=== PATIENT | female | born 1980 | race Caucasian/White ===

== ENCOUNTER 2018-01-22 16:30 | Outpatient (CLI) | payer OTHER ==
[2018-01-22 17:04] LABS: Hemoglobin 14.2 g/dL (12.0-16.0); Mean Corpuscular HGB CONC 33.6 g/dL (32.0-36.0); Mean Corpuscular Volume 89.2 fl (81.0-99.0); Mean Platelet Volume 7.4 fL (7.4-10.4); Platelet Count 247 thou/uL (130-400); RBC Distribution Width 11.8 % (11.5-14.5); Red Blood Cell (RBC) Count 4.74 mill/uL (4.20-5.40); White Blood Cell (WBC) Count 9.7 thou/uL (4.8-10.8)
== END 2018-01-22 16:31 | disposition home or self-care (01) ==
LOC: LABBT 16:30
PROVIDERS: ATTEND Student in an Organized Health Care Education/Training Program
DX: Z01.812 Encounter for preprocedural laboratory examination (principal); D21.9 Benign neoplasm of connective and other soft tissue, unspecified; R10.2 Pelvic and perineal pain
CPT/HCPCS: 85027; 86850; 86900; 86901

== ENCOUNTER 2018-01-22 16:31 | Observation (INO) | payer OTHER ==
[2018-01-22 17:00] VITALS: BMI 29.4
--- NOTE | 2018-01-24 21:05 | HP ---
DATE OF ADMISSION: 01/25/2018 CHIEF COMPLAINT: Uterine fibroids and pelvic pain. HISTORY OF PRESENT ILLNESS: This is a 37-year-old G0 with complaints of daily pelvic pain with episo dic severe pressure type pain occurring every couple of days. The patient was found to have a uterin e fibroid when she initially came to see me in 08/2017 that was 7 x 6 x 7. She had an MRI secondary to some increased vascularity. The fibroid on MRI was felt to be anterior. It showed varicosities i n the parametrium and pelvic congestion. This mass was felt to be a large submucosal fibroid. No ly mph nodes were evident and possible pelvic congestion. She then was placed on 6 months of Depo Lupro n, which did shrink the fibroid and slightly improved her pelvic pain and she was bridged on to silvestre nuous oral contraceptives. She had recurrence of her pain after being bridged on to continuous OCPs after 6 months and repeat ultrasound showed that the fibroid had grown back to its original size and this was in 12/2016. Most recent ultrasound showed the fibroid measuring 7.25 x 5.85 x 7.4. PAST MEDICAL HISTORY: Denies. PAST SURGICAL HISTORY: Laparotomy for ovarian cyst and endometriosis in 2002. OBSTETRIC HISTORY: G0. GYNECOLOGIC HISTORY: No abnormal Paps, no STDs. SOCIAL HISTORY: Negative x3. ALLERGIES: PENICILLIN. FAMILY HISTORY: Hyperlipidemia, diabetes, colon cancer in maternal grandmother. REVIEW OF SYSTEMS: Negative except as noted in HPI. PHYSICAL EXAMINATION: VITAL SIGNS: Blood pressure 110/76, weight 166 pounds, BMI is 30.4, pulse is 90, respirations 18. GENERAL: No acute distress. CARDIAC: Regular rate and rhythm. LUNGS: Clear to auscultation bilaterally. ABDOMEN: Soft, nontender, nondistended. EXTREMITIES: No edema, cyanosis or clubbing. PELVIC: Deferred to the OR. ASSESSMENT AND PLAN: This is a 37-year-old G0 with symptomatic uterine fibroid with pressure symptom s and a history of likely endometriosis. The patient desires management with a conservative surgery including myomectomy and excision or fulguration of endometriotic implants if present based on lizy hayward's report of 2002 laparotomy. I have not been able to obtain his OP note and I have counseled the p atient on risk of surgery to include bleeding, transfusion, infection, damage to surrounding structur es including bowel, bladder, ureter, blood vessels and nerves, also, regrowth of fibroids following m yomectomy or if excessive bleeding present and lifesaving hysterectomy would also be acceptable. The patient understands and wishes to proceed. All her questions were answered. She will follow up wit h me in 2 weeks postoperative time.
[2018-01-25] MEDS ORDERED: Bupivacaine HCl 0.5%/Epinephrine 1:200,000/PF 30 ml Vial ONE (06:38)
[2018-01-25] MEDS ORDERED: Levofloxacin 500 mg/D5W 100 ml Premix Bag ONE (06:54)
[2018-01-25] MEDS ORDERED: Clindamycin/D5W 900 mg/50 ml Premix Bag ONE (06:54)
[2018-01-25] MEDS ORDERED: Promethazine HCl 25 MG/ML VIAL ONE (07:04)
[2018-01-25] MEDS ORDERED: Midazolam HCl 2 mg/2 ml Vial ONE ×2 (07:04→07:31)
[2018-01-25] MEDS ORDERED: Fentanyl 250 MCG/5 ML VIAL ONE ×2 (07:04→11:48)
[2018-01-25] MEDS ORDERED: Sterile Water 10 ML ONE (08:13)
[2018-01-25] MEDS ORDERED: Ondansetron HCl/PF 4 MG/2 ML Vial IVP PRN ×2 (11:30→11:35)
[2018-01-25] MEDS ORDERED: Promethazine HCl 25 MG/ML VIAL SLOW IVP PRN (11:30)
[2018-01-25] MEDS ORDERED: Morphine Sulfate 2 MG/ML SYRINGE SLOW IVP PRN (11:30)
[2018-01-25] MEDS ORDERED: HYDROcodone/Acetaminophen 5/325 mg Tablet PO PRN (11:35)
[2018-01-25] MEDS ORDERED: Simethicone Chewable 80 MG TAB PO PRN (11:35)
[2018-01-25] MEDS ORDERED: diphenhydrAMINE 25 MG CAP PO PRN (11:35)
[2018-01-25] MEDS ORDERED: Acetaminophen 325 MG TAB PO PRN (11:35)
[2018-01-25] MEDS ORDERED: Bisacodyl 10 MG SUPP PR PRN (11:35)
[2018-01-25] MEDS ORDERED: Promethazine HCl 25 MG/ML VIAL IM PRN (11:35)
[2018-01-25] MEDS ORDERED: Zolpidem Tartrate 5 MG TAB PO PRN (11:35)
[2018-01-25] MEDS: Morphine 5 MG/ML SYRINGE SLOW IVP PRN ×2 (12:45→16:48)
--- NOTE | 2018-01-25 13:22 | OP ---
DATE OF OPERATION: 01/25/2018 PREOPERATIVE DIAGNOSES: 1. Uterine fibroid. 2. Endometriosis. 3. Pelvic pain. POSTOPERATIVE DIAGNOSES: 1. Uterine fibroid. 2. Endometriosis. 3. Pelvic pain. PROCEDURE: Robotic assisted myomectomy, lysis of adhesions. ESTIMATED BLOOD LOSS: 150 mL. URINE OUTPUT: 300 mL of clear urine. INTRAVENOUS FLUIDS: Two liters crystalloid. COMPLICATIONS: None. PATHOLOGY: Uterine fibroid. DRAINS: Asher catheter. ANESTHESIA: General endotracheal. ATTENDING SURGEON: Rosa Dickerson MD [employer] SURGEON: Meg Mehta D.O. FINDINGS: On exam under anesthesia, a mobile 14-week size uterus with a 4 cm an anterior fibroid present. On intraabdominal survey, the bilateral adnexa were adherent to the pelvic sidewall and the uterosacral ligaments bilaterally and the fibroid was anterior. There were no other discrete fibroid present and no other endometriotic implants visible. A small eli less than 1 cm in the bag was noted near the top of the bag that occurred during morcellation. Since the hole was near the rim of the bag it was felt to likely be due to traction on bag and no evidence of underlying injury to abdominal structures. Possible minimal to no spillage of cellular material through this hole. Abdomen was irrigated following morcellation. OPERATIVE TECHNIQUE: The patient was taken to the operating room where general anesthesia was obtained without difficulty. The patient was prepped and draped in a sterile fashion in the dorsal lithotomy position. A Asher catheter was placed in the bladder. A speculum was placed in the vagina. The anterior lip of cervix was grasped with a single tooth tenaculum. The uterus then sounded to 12 cm and the cervix was dilated with Ry dilators. Progressively, the diagnostic VCare was then inserted at the sounded depth and the tip balloon was inflated. The speculum and tenaculum were removed out of the vagina and legs were placed in low lithotomy. Attention was turned to the abdomen. An 8 mm skin incision was made in the umbilicus after infiltrating with 0.5% Marcaine with epinephrine. The Veress needle was passed into the abdomen noting an opening pressure of 5 mmHg. Pneumoperitoneum was obtained without difficulty. The Veress needle was then removed. The 8 mm trocar was passed into the abdomen and confirmed placement with robotic camera and steep Trendelenburg was obtained. The lower quadrant 8 mm robotic trocars were then placed after infiltrating with anesthetic under direct visualization. The umbilical incision was then extended to accommodate a 2.5 cm fascial incision with a knife. The 8 mm trocar was removed. The mini GelPOINT Elena was then placed into the abdomen and the 8 mm scope port and the 11 mm printer assistant port were placed through the mini GelPOINT and this was affixed to the Elena and pneumoperitoneum was reestablished. The remainder of the omental adhesions to the anterior abdominal wall were then taken down with the use of the monopolar scissors on coag ensuring hemostasis. The robot was then docked using the monopolar scissors in the right robotic arm and the fenestrated bipolar in the left robotic arm. The surgeon console then took control and the uterus was elevated. A spinal needle was used through the anterior abdominal wall and the fenestrated and guided the needle into the incision site on the uterine serosa where a dilute vasopressin of 20 units mixed and 100 mL sterile saline was infiltrated into the serosa approximately 50 mL total. An incision was then made over the fibroid. There were multiple what appeared to be coalesce fibroids in the anterior wall and the myometrial fibers attached to the fibroid were dissected off using traction with the printer assistant using tenaculum and incising with the monopolar scissors. The fibroid was progressively shelled out in one large mass. This took approximately 30 minutes. At the base of the fibroid, the vasculature was clamped, cauterized with the fenestrated and transected with the scissors. The fibroid was not near a tubal ostia and did not invade the endometrial lining. Hemostasis was then achieved of the fibroid bed with the fenestrated bipolar. Irrigation was also performed. The endometrial cavity was not entered into during this dissection and the fibroid was placed in the upper abdomen. The scissors were then traded out for the needle bus driver/monitor and the myometrial bed was closed in a layered fashion using 2-0 barbed suture. This was closed in approximately 3 layers, noting excellent hemostasis. The serosal layer with a 2-0 barbed suture using a baseball stitch was then performed, again noting excellent hemostasis. Irrigation was performed on the top of the incision, myomectomy bed and hemostasis was again noted. The FloSeal was then placed into the incision and Interceed was placed on top of this. The uterus was then anteverted and the areas on the pelvic sidewall with ovaries were adherent to, this was very close to the ureter. The ovaries was grasped and pulled away from the peritoneum and a superficial incision was made over the retroperitoneum and the ovaries were dissected off the pelvic sidewall bilaterally as well as the fallopian tubes carefully dissecting only transparent tissue to avoid inadvertent injury to the ureter or underlying structures. There was no active endometriotic implants noted, just old scarring from previous endometriosis and surgery. Once this dissection was satisfactory, this area was irrigated and suctioned. At that time, the [employer] bag was then delivered into the pelvis and the fibroid was delivered into the pelvis as well. The bag was opened up and the fibroid was easily delivered into the bag. The bag was then cinched tight and pulled out of the mini GelPOINT. The robot was then undocked. All instruments were removed out of the abdomen. The bag was brought out of the mini GelPOINT and Elena O. The Elena was removed and placed on the anterior portion of the bag and the fibroid was grasped with Frank clamps and brought out of the incision using a C- incision technique, tenting up on the elena to avoid any injury to underlying structures. There was an excessive amount of shredding of the tissue and this did take a prolonged period of time, approximately 45 minutes and once the fibroid was completely removed, the back was removed and noted to have a < 1 cm defect near the top of the bag. This was felt to be due to traction on the bag at the level of the abdominal incision rather than laceration of the bag with sharp instrument. The Elena O retractor was removed as well. The incision was irrigated and the fascia was closed with 0 Vicryl in a running fashion with excellent reapproximation. The subcutaneous tissue was irrigated again and the skin was closed with a 4-0 Monocryl in a subcuticular fashion and Dermabond was applied. The diagnostic VCare was removed out of the uterus and there was a bleeding area on the cervix where the tenaculum was previously placed and this was cauterized with the Bovie and hemostatic. All instruments were removed out of the vagina. The patient tolerated procedure well. Sponge and needle counts were correct x2. The patient was taken to recovery in stable condition. The patient received Levaquin and clindamycin prior to the procedure per [facility]IP protocol. MTDD
[2018-01-25] MEDS: Ketorolac Tromethamine 30 MG/ML VIAL IVP SCH ×3 (13:47→23:35)
[2018-01-25] MEDS: Sodium Chloride 0.9% 1,000 ML IV SCH ×2 (14:29→17:32)
[2018-01-25] MEDS ORDERED: Acetaminophen 1,000 MG in Premix Bag 1 BAG IVPB SCH (15:15)
[2018-01-25] MEDS ORDERED: Glycopyrrolate 0.2 MG/ML 5 ML SYRINGE ONE (16:51)
[2018-01-25] MEDS ORDERED: Dexamethasone 20 MG/5 ML VIAL ONE (16:51)
[2018-01-25] MEDS ORDERED: Ketorolac Tromethamine 30 MG/ML VIAL ONE (16:51)
[2018-01-25] MEDS ORDERED: Ondansetron HCl/PF 4 MG/2 ML Vial ONE (16:51)
[2018-01-25] MEDS ORDERED: Lidocaine 1% PF 5 ML VIAL ONE (16:51)
[2018-01-25] MEDS ORDERED: Propofol 200 MG/20 ML VIAL ONE (16:51)
[2018-01-25] MEDS: HYDROcodone/Acetaminophen 5/325 mg Tablet PO PRN (21:27)
[2018-01-26] MEDS: Morphine 5 MG/ML SYRINGE SLOW IVP PRN (03:53)
[2018-01-26] MEDS: Sodium Chloride 0.9% 1,000 ML IV SCH (03:58)
[2018-01-26 05:46] LABS: Hemoglobin 11.9 g/dL (12.0-16.0); Mean Corpuscular HGB CONC 33.3 g/dL (32.0-36.0); Mean Corpuscular Hemoglobin 29.9 pg (27.0-31.0); Mean Corpuscular Volume 89.8 fl (81.0-99.0); Mean Platelet Volume 7.5 fL (7.4-10.4); Platelet Count 188 thou/uL (130-400); RBC Distribution Width 11.9 % (11.5-14.5); Red Blood Cell (RBC) Count 3.98 mill/uL (4.20-5.40); White Blood Cell (WBC) Count 11.9 thou/uL (4.8-10.8)
[2018-01-26] MEDS: Ketorolac Tromethamine 30 MG/ML VIAL IVP SCH (06:06)
[2018-01-26] MEDS: HYDROcodone/Acetaminophen 5/325 mg Tablet PO PRN (08:54)
--- NOTE | 2018-01-26 11:57 | DIS ---
DATE OF ADMISSION: 01/25/2018 DATE OF DISCHARGE: 01/26/2018 ADMISSION DIAGNOSES: Uterine fibroids, pelvic pain, and endometriosis. DISCHARGE DIAGNOSES: Status post robotic-assisted myomectomy, lysis of adhesions. DISCHARGE CONDITION: Stable. ATTENDING PHYSICIAN: Rosa Dickerson M.D. CONSULTATIONS: None. PROCEDURES: Robotic-assisted myomectomy, lysis of adhesions. HISTORY AND PHYSICAL EXAMINATION: Please see previously dictated H and P. HOSPITAL COURSE: A 37-year-old presented to day surgery to undergo surgery as above that was uncompl icated with an estimated blood loss of 150 mL. Postoperatively, the patient was transferred to the [facility] and managed on IV pain medicine and transitioned to p.o. meds. On postoperative day #1, she randy erated a regular diet, ambulated, and voided without difficulty. Her hemoglobin the day after surger y was 11.9. Her vital signs were within normal limits and her output was normal. She has dispositio n for discharge home with follow up with me in 2 weeks' postoperative time. Her final pathology is p ending at the time of discharge. She was given prescriptions for [place] 5/325 and ibuprofen 800 mg on discharge.
[2018-01-26 12:24] VITALS: BP 101/55; TEMP 97.6
[2018-01-30] MEDS ORDERED: Ibuprofen 800 MG TAB PO SCH (22:00)
== END 2018-01-26 13:11 | disposition home or self-care (01) ==
LOC: INTOOBSV 01-25 06:07 → OBSVTOIN 01-25 06:07 → SURG A 01-25 06:07 → 3SE 01-25 11:49 → EDSTATUS 01-25 17:00
PROVIDERS: ADMIT Student in an Organized Health Care Education/Training Program; ATTEND Student in an Organized Health Care Education/Training Program
PROC: 0UB94ZZ Excision of Uterus, Percutaneous Endoscopic Approach (ICD-10-PCS; principal; 2018-01-25)
PROC: 0DNW4ZZ Release Peritoneum, Percutaneous Endoscopic Approach (ICD-10-PCS; 2018-01-25)
PROC: 8E0W4CZ Robotic Assisted Procedure of Trunk Region, Percutaneous Endoscopic Approach (ICD-10-PCS; 2018-01-25)
DX: D25.0 Submucous leiomyoma of uterus (principal); R10.2 Pelvic and perineal pain; Z01.812 Encounter for preprocedural laboratory examination; D25.1 Intramural leiomyoma of uterus
CPT/HCPCS: 36415; 85027; 86850; 86900; 86901; 88305; 96374; 96375; 96376; J2270; A4216; G0378; J0131; J0670; J1100; J1885; J1956; J2001; J2250; J2405; J2550; J2704; J3010; J3490